=== PATIENT | female | born 1980 | race Two or more races ===

== ENCOUNTER 2018-08-07 05:57 | Inpatient (IN) | payer OTHER ==
[~2018-08-07] VITALS: Ht 160 cm; Wt 73.9 kg
[2018-08-07] MEDS ORDERED: PRENATAL 19 TA1 EAC1 PO (07:01)
[2018-08-07] MEDS ORDERED: PNEU16DI2 (07:01)
== END 2018-08-09 14:31 | DRG 807 ==
LOC: LDR 05:57 → OB/GYN 05:57
PROVIDERS: ADMIT Obstetrics & Gynecology
PROC: 10E0XZZ Delivery of Products of Conception, External Approach (ICD-10-PCS; principal; 2018-08-07)
PROC: 0KQM0ZZ Repair Perineum Muscle, Open Approach (ICD-10-PCS; 2018-08-07)
PROC: 4A1HXCZ Monitoring of Products of Conception, Cardiac Rate, External Approach (ICD-10-PCS; 2018-08-07)
PROC: 4A033R1 Measurement of Arterial Saturation, Peripheral, Percutaneous Approach (ICD-10-PCS; 2018-08-07)
PROC: 3E033VJ Introduction of Other Hormone into Peripheral Vein, Percutaneous Approach (ICD-10-PCS; 2018-08-07)
DX: O70.1 Second degree perineal laceration during delivery (principal); Z37.0 Single live birth; Z3A.39 39 weeks gestation of pregnancy

== ENCOUNTER 2018-09-25 05:37 | Day surgery (SDC) | payer OTHER ==
[~2018-09-25 05:37] MED LIST: PNEU16DI2; PRENATAL 19 TA1 EAC1 PO
== END 2018-09-25 20:10 | disposition home or self-care (01) ==
LOC: CIR.AMB 05:37
DX: Z30.2 Encounter for sterilization (principal); N73.6 Female pelvic peritoneal adhesions (postinfective)